=== PATIENT | male | born 1985 | race American Indian/Alaskan Native ===

== ENCOUNTER 2017-05-18 22:54 | Emergency (ER) | payer OTHER ==
[2017-05-19] MEDS ORDERED: ZOFRAN IV ONE (00:45)
[2017-05-19] MEDS ORDERED: MORPHINE IV ONE (00:45)
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
[2017-05-19] MEDS ORDERED: MORPHINE ONE (01:07)
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
[2017-05-19 01:58] VITALS: BP 148/86
== END 2017-05-19 01:50 | disposition home or self-care (01) ==
LOC: ED 22:54
DX: S39.012A Strain of muscle, fascia and tendon of lower back, initial encounter (principal); S13.9XXA Sprain of joints and ligaments of unspecified parts of neck, initial encounter; V89.2XXA Person injured in unspecified motor-vehicle accident, traffic, initial encounter; Y93.89 Activity, other specified; Y99.8 Other external cause status; Y92.488 Other paved roadways as the place of occurrence of the external cause
CPT/HCPCS: 72040; 72070; 72100; 96374; 96375; 99284; J2270; J2405